=== PATIENT | male | born 1970 | race Caucasian/White ===

== ENCOUNTER 2021-03-20 00:45 | Day surgery (SDC) | payer OTHER, SELFPAY ==
[2021-03-14 15:43] VITALS: BMI 28.3
[2021-03-20 09:47] VITALS: BP 121/77; PULSE 64; RESP 16; TEMP 36.5; O2SAT 99; BMI 27.6
[2021-03-20] MEDS: LACTATED RINGERS 1,000 ML 150 ML IV CONT (10:00)
--- NOTE | 2021-03-20 10:20 | WPDANESEPPF ---
Anes - Initial Pre Proc Eval Procedure: Operation Date: 03/20/21 10:30 Proposed Procedures p Esophagogastroduodenoscopy & Screening Colonoscopy - Luke Pearson MD Date/Time: 03/20/21 10:20 Surgeon: Luke Pearson MD Pre Op Diagnosis: GERD, neoplasm screening Patient Data Age: 50 Gender: M Height: 1.88 m Weight: 97.5 kg Last Vital Signs Temp 97.7 F 03/20/21 09:47 Pulse 64 03/20/21 09:47 Resp 16 03/20/21 09:47 BP 121/77 03/20/21 09:47 Pulse Ox 99 03/20/21 09:47 Allergies Allergy/AdvReac Type Severity Reaction Status Date / Time No Known Allergies Allergy Unknown Verified 03/20/21 09:45 Home Medications Medication Instructions Recorded Confirmed Type No Home Medications 03/20/21 03/20/21 History Patient hx anesthesia problems: none Family hx anesthesia problems: none Results Review: All pre-operative results and documents have been reviewed as part of the pre-operative evaluation. [facility] Past Medical History Medical History (Updated 03/20/21 @ 10:15 by Jose E Cabrera MD) GERD (gastroesophageal reflux disease) Social History Social History Smoking status: Never smoker Alcohol intake: current Drinks per week: 12 Substance use: current Substance use type: marijuana Other substance usage details: DAILY Living arrangements: with family Spiritual care concerns: No Anes - Eval Final PreProcedure Day of Procedure 03/20/21 10:20 Patient weight: normal Heart: regular rate and rhythm Lungs: clear to auscultation Airway: Mallampati scale class II Neurological: alert and oriented Last oral intake: >/= 8 hours ASA classification: II Emergent: no Anesthetic plan: proceed Anesthesia type and monitoring: general GIVS and standard monitoring Results Review: All pre-operative results and documents have been reviewed as part of the pre-operative evaluation. Informed Consent: The patient's anesthetic plan and its attendant risks and benefits were discussed with the patient/family/POA. Questions were solicited and answers provided to the satisfaction of the patient/family/POA.
--- NOTE | 2021-03-20 10:28 | WPDGICN ---
Assessment and Plan Assessment and plan (1) Encounter for screening colonoscopy: Code(s): Z12.11 - Encounter for screening for malignant neoplasm of colon Status: Acute Assessment and Plan: Patient presents for screening colonoscopy because of age. He is now 50. Would wait appetite bowel movements are normal. Further recommendations will be given after endoscopy. (2) Dyspepsia: Code(s): R10.13 - Epigastric pain Status: Acute Assessment and Plan: Patient has acid indigestion occurs briefly and intermittently. Appears well controlled with Tums or other antacids. An EGD is requested because of these symptoms but also because of recent discovery of iron deficiency. He is not anemic and no bleeding has been identified. (3) Iron deficiency: Code(s): E61.1 - Iron deficiency Status: Acute Assessment and Plan: Patient apparently was iron deficient on routine screening test. Plan is to consider iron replacement after GI endoscopy. GI Consult Note Consult date/time: 03/20/21 10:28 HPI: Francisco Stock is a 50 year old male Presents for GI endoscopy. Patient in general good health. Apparently had routine lab testing and was found to have a normal CBC but low iron testing. Patient denies any obvious bleeding. He has had no bruising. No nose bleeds. No blood in his urine. He states that briefly had indigestion prior to office evaluation with primary care service. This only lasted for several days. He apparently has had occasional heartburn for which she takes Tums. Patient denies any dysphagia or bleeding. Stool Hemoccult has never been obtained. He is referred today for routine neoplasia screening colonoscopy but also EGD because of his indigestion. Family history is noncontributory. Review of Systems Review of Systems: All systems reviewed & are unremarkable except as noted in HPI and below PMFSH Past Medical History Medical History (Updated 03/20/21 @ 10:30 by Luke Pearson MD) GERD (gastroesophageal reflux disease) Social History Social History Smoking status: Never smoker Alcohol intake: current Drinks per week: 12 Substance use: current Substance use type: marijuana Other substance usage details: DAILY Living arrangements: with family Spiritual care concerns: No Meds Home Medications and Allergies Home Medications Medication Instructions Recorded Confirmed Type No Home Medications 03/20/21 03/20/21 History Allergies Allergy/AdvReac Type Severity Reaction Status Date / Time No Known Allergies Allergy Unknown Verified 03/20/21 09:45 Vital Signs Vital Signs - 24 hr 03/20/21 09:47 Temperature 97.7 F Pulse Rate 64 Respiratory Rate 16 Blood Pressure 121/77 Pulse Oximetry 99 Exam Narrative: Physical exam reveals patient be alert. Vital signs stable. HEENT exam reveals no icterus. Lungs are clear to auscultation and percussion. Heart is without murmur or extra sounds. Abdominal exam bowel sounds are present soft nontender with no hepatosplenomegaly. Digital external rectal exam is normal.
--- NOTE | 2021-03-20 10:46 | SUR.OPER ---
EGD ENDED 1040, COLONOSCOPY STARTED 1045
[2021-03-20 11:03] VITALS: BP 99/60; PULSE 62; RESP 19; O2SAT 96
[2021-03-20 11:13] VITALS: BP 106/60; PULSE 51; RESP 23; O2SAT 97
[2021-03-20 11:23] VITALS: BP 102/70; PULSE 62; RESP 20; O2SAT 100
== END 2021-03-20 11:34 | disposition home or self-care (01) ==
PROVIDERS: PCP Internal Medicine; Visit Provider Internal Medicine Gastroenterology
PROC: 0DJ08ZZ Inspection of Upper Intestinal Tract, Via Natural or Artificial Opening Endoscopic (ICD-10-PCS; CPT 43235; principal; 2021-03-20 10:30)
DX: Z12.11 Encounter for screening for malignant neoplasm of colon (principal); R10.13 Epigastric pain; K63.5 Polyp of colon; E61.1 Iron deficiency; F12.90 Cannabis use, unspecified, uncomplicated; K21.00 Gastro-esophageal reflux disease with esophagitis, without bleeding
CPT/HCPCS: 45385; 43235; 88305; J2001; J2704; J7120